=== PATIENT | male | born 1995 | race Caucasian/White ===

== ENCOUNTER 2019-01-08 13:20 | Emergency (ER) | payer MEDICAID ==
[~2019-01-08] VITALS: Ht 172.7 cm; Wt 63.5 kg
[2019-01-08 13:22] VITALS: BP 145/71
--- NOTE | 2019-01-08 13:24 | NUR ---
PT AMBULATES TO [facility] WITH STEADY GAIT
--- NOTE | 2019-01-08 13:24 | NUR ---
PT SENT TO ER LOBBY TO WAIT FOR AVAILABLE BED.
--- NOTE | 2019-01-08 13:56 | NUR ---
PT CALLED 1ST TIME NO ANSWER. PATIENT LEFT WITHOUT BEING SEEN BY DR. MYRICK. NO FURTHER CARE PROVIDED FOR PATIENT.
--- NOTE | 2019-01-08 14:42 | NUR ---
PT CALLED [address] TIME NO ANSWER.
== END 2019-01-08 13:56 | disposition left against medical advice (07) ==
LOC: MED 13:20
DX: Z71.51 Drug abuse counseling and surveillance of drug abuser (principal); Z53.21 Procedure and treatment not carried out due to patient leaving prior to being seen by health care provider; F31.9 Bipolar disorder, unspecified